=== PATIENT | female | born 1985 | race Caucasian/White ===

== ENCOUNTER 2024-09-12 13:30 | Emergency (ER) | payer OTHER, SELFPAY ==
--- NOTE | ~2024-09-12 | XR_ITS ---
EXAMINATION: XR KNEE, LEFT CLINICAL INFORMATION: knee pain COMPARISON: None available. TECHNIQUE: Four views of the left knee. FINDINGS: No fracture, dislocation, or suspicious bone lesion. Normal bone mineralization. Normal alignment. Mild tricompartmental osteoarthrosis. Superior patellar enthesopathy. No significant joint effusion. Soft tissues appear normal. XR/XR knee LT 4V IMPRESSION: 1. No acute bony abnormalities of the left knee. 2. Mild tricompartmental osteoarthritis. 3. No joint effusion. Electronically signed by: Omid García MD 09/12/2024 02:26 PM EDT
[2024-09-12 13:39] VITALS: BP 155/78; PULSE 122; RESP 18; TEMP 36.7; O2SAT 95; BMI 44.3
--- NOTE | 2024-09-12 13:44 | ED.GENADULT ---
HPI - General Adult General Chief complaint: Extremity Injury, Lower Stated complaint: l knee twisted at work Time Seen by Provider: 09/12/24 15:51 Source: patient Mode of arrival: ambulatory Limitations: no limitations History of Present Illness ED Provider: Efrain Nowak HPI narrative: 38 yold female with no pmh presents to the ED for left knee pain since yesterday. Patient states yesterday she was at work and while turning she heard a pop in her anterior knee. patient states pain ever since. Patient denies any redness, swelling, fever, chills, stiffness, calf pain, chest pain, shortness of breath, or any recent blunt trauma. Related Data Previous Rx's ?Medication ?Instructions ?Recorded naproxen 500 mg tablet 500 mg PO BID PRN pain #14 tabs 09/12/24 Allergies Allergy/AdvReac Type Severity Reaction Status Date / Time lactose Allergy Gastrointestinal Verified 09/12/24 13:42 Upset latex Allergy Itching Verified 09/12/24 13:42 Review of Systems Review of Systems: left knee pain . heard pop Yes all other systems are reviewed and are negative [facility] Social History Social History Advance Directives: No Advance Directives Information Provided: No Do you have a plan to hurt others: No Plan Physical Exam ED Vital Signs: Vital Signs - 24 hr 09/12/24 13:39 09/12/24 15:49 09/12/24 16:09 Temperature 98.1 F 97.0 F 97.0 F Pulse Rate 122 H 98 98 Respiratory Rate 18 16 16 Blood Pressure 155/78 H 126/78 126/78 Pulse Oximetry 95 98 98 Oxygen Delivery Method Room Air Room Air Room Air BMI result Body Mass Index 44.3 Const General: cooperative, healthy appearing, comfortable, no acute distress and well developed Orientation/consciousness: patient oriented x3 HENMT Head: Yes normal to inspection, Yes No palpable skull fracture present, Yes normocephalic, Yes atraumatic and No abrasion Eyes General: appearance normal, both eyes and all related structures Neck Neck: Yes normal visual inspection, Yes full ROM, Yes no lymphadenopathy, Yes no meningeal signs, Yes trachea midline, Yes supple, No anterior neck swelling and No tender Chest Chest palpation & inspection: normal inspection of the chest and normal palpation of entire chest wall Resp Effort & Inspection: normal respiratory effort and able to speak in complete sentences Auscultation: clear to auscultation bilaterally Cardio Jugular venous distension: no JVD Heart sounds: S1 normal heart sound present and S2 normal heart sound present GI Inspection: Yes normal to inspection Palpation (GI): Soft to palpation, not firm, nontender, no guarding and not rigid General: Yes no CVA tenderness Back/Spine/Pelvis Back: no CVA tenderness and No back tenderness Skin General skin exam: no rashes or lesions noted, elasticity normal and turgor normal Neuro General: patient oriented x3, gait normal, tone normal, moves all extremities, Normal light touch and pain sensation, no meningeal signs, no focal motor deficits and CN's II-XI intact bilaterally Extrem General: Yes normal to inspection, Yes full ROM, Yes capillary refill normal, Yes normal exam except as noted and Yes no joint enlargement Knee images: 1. positive for tenderness. negative for erythema, ecchymosis, deformity, crepitus, or stiffness. rest of extremity is normal. motor, neuro, and vascular exam is intact. Psych Appearance: grossly normal, well kempt and not disheveled Course Course Course Narrative: RME: 38-year-old female presents to ED for left knee pain since yesterday. Patient turned left lower extremity and heard a pop in her left anterior knee. Patient states pain on movement. Patient denies any swelling redness or blunt trauma. Medical Decision Making Medical Decision Making [facility] Narrative: 38-year-old female presents to ED for right knee pain since yesterday. Patient states she was turning her leg and heard a pop in left knee. Patient denies any knee swelling, redness, stiffness, bluish black discoloration calf pain, chest pain, shortness of breath. Physical exam positive for anterior left knee tenderness without any swelling, redness, stiffness bluish black discoloration. Rest of extremity normal. Negative for any signs of vascular motor neuro compromise. Not suspecting septic joint, gout, DVT, osteomyelitis, compartment syndrome, arterial occlusion, cellulitlis, lymphangitis or necrotizing fasciitis. Patient explained worrisome signs and informed to return to the ED immediately. Patient given daryl wrap. Differential Diagnosis Differential Diagnoses: The differential diagnosis associated with the presentation includes (knee fracture, disclocation, knee sprain) Admission/Observation Consideration of admission/observation: Escalation of care including admission/observation considered Lab Data [facility] Lab Attestation statement: I reviewed the patient's lab results. Independent Interpretation I performed an independent interpretation of an: Plain X-Ray Radiology Impression Discussion of test interpretation with radiology: I have reviewed the radiologist's reading. Independent Historian Clinical information obtained from an independent historian. History obtained from or confirmed by: Other (patient) Prescription Management I considered prescription management with: Pain Medication Discharge Plan Discharge Clinical Impression: Knee sprain Patient Disposition: Home, Self-Care Instructions: Knee Sprain (ED), How to Use an Elastic Bandage (ED), R.I.C.E. Treatment (ED) Additional Instructions: X-ray came back normal. If pain persists you will need to follow up with primary care provider for possible physical therapy referral and MRI. Return to the ED immediately for any knee swelling, redness, bluish discoloration, calf pain, chest pain, shortness of breath, or any other concerning symptoms. EXAMINATION: XR KNEE, LEFT CLINICAL INFORMATION: knee pain COMPARISON: None available. TECHNIQUE: Four views of the left knee. FINDINGS: No fracture, dislocation, or suspicious bone lesion. Normal bone mineralization. Normal alignment. Mild tricompartmental osteoarthrosis. Superior patellar enthesopathy. No significant joint effusion. Soft tissues appear normal. XR/XR knee LT 4V IMPRESSION: 1. No acute bony abnormalities of the left knee. 2. Mild tricompartmental osteoarthritis. 3. No joint effusion. Electronically signed by: Omid García MD 09/12/2024 02:26 PM EDT Dictated By: Omid García MD Signed By: <Electronically signed by Omid García MD in [place]> 09/12/24 1426 Prescriptions: New naproxen 500 mg tablet 500 mg PO BID PRN (Reason: pain) Qty: 14 0RF [place] [facility] [place] [facility] [place]Provider Group] (Knee sprain) [facility] [place]Provider Group] (Knee sprain) Stand Alone Forms: Work/School Release Interventions: ED Discharge Assessment Last Done: 09/12/24 16:09 Discharge Date/Time: 09/12/24 16:09 Print Language: Frisian
[2024-09-12 15:49] VITALS: BP 126/78; PULSE 98; RESP 16; TEMP 36.1; O2SAT 98
[2024-09-12 16:09] VITALS: BP 126/78; PULSE 98; RESP 16; TEMP 36.1; O2SAT 98
== END 2024-09-12 16:09 | disposition home or self-care (01) ==
PROVIDERS: Emergency Provider Emergency Medicine
DX: S83.92XA Sprain of unspecified site of left knee, initial encounter (principal); X58.XXXA Exposure to other specified factors, initial encounter; Y93.9 Activity, unspecified; Y92.9 Unspecified place or not applicable; Y99.8 Other external cause status
CPT/HCPCS: 73564; 99282; 99283

== ENCOUNTER → 2024-09-12 13:43 | Outpatient (BNV) | payer SELFPAY | PROVIDERS: Visit Provider Radiology Diagnostic Radiology | DX: M25.562 Pain in left knee (principal) | CPT/HCPCS: 73564 ==

== ENCOUNTER 2024-12-23 08:53 | Outpatient (REF) | payer OTHER, SELFPAY | END 2024-12-23 08:54 | disposition home or self-care (01) | LOC: HO.HOSX 08:53 | PROVIDERS: Visit Provider Physician Assistant | DX: Z13.89 Encounter for screening for other disorder (principal) ==

== ENCOUNTER 2025-01-17 08:29 | Outpatient (REF) | payer OTHER, SELFPAY | END 2025-01-17 08:30 | disposition home or self-care (01) | LOC: HO.HOSX 08:29 | PROVIDERS: Visit Provider Physician Assistant | DX: Z13.89 Encounter for screening for other disorder (principal) ==